=== PATIENT | male | born 1975 | race Caucasian/White ===

== ENCOUNTER 2018-02-27 07:59 | Emergency (ER) | payer OTHER ==
[2018-02-27 08:23] VITALS: BP 151/88
--- NOTE | 2018-02-27 09:03 | UC ---
General HPI - HPI Summary HPI Summary: 4-5 day hx of being ill. began with sinus congestion then a sore throat. now has cough, congestion and some castañeda. hx asthma. no fever or chills but fatigued. - History of Current Complaint Chief Complaint: UCRespiratory Stated Complaint: SORE THROAT,RUNNY NOSE Time Seen by Provider: 02/27/18 08:53 Hx Obtained From: Patient Onset/Duration: Gradual Onset Timing: Constant Pain Intensity: 0 Associated Signs & Symptoms: Positive: Cough, SOB. Negative: Chest Pain, Fever , Headache, Weakness - Allergy/Home Medications Allergies/Adverse Reactions: Allergies Allergy/AdvReac Type Severity Reaction Status Date / Time No Known Allergies Allergy Verified 02/27/18 08:23 Home Medications: Home Medications Fluticasone NASAL SPRAY 50MCG* [Flonase NASAL SPRAY 50MCG*] 2 spray BOTH NARES DAILY 02/27/18 [History Confirmed 02/27/18] PMH/Surg Hx/FS Hx/Imm Hx Cardiovascular History: Hypertension - white coat plus borderline, tx diet Respiratory History: Asthma, Pneumonia - Surgical History Surgical History: Yes Surgery Procedure, Year, and Place: inguinal hernia repair - Social History Occupation: Employed Full-time Alcohol Use: Rare Substance Use Type: None Smoking Status (MU): Never Smoked Tobacco - Immunization History Vaccination Up to Date: Yes Review of Systems All Other Systems Reviewed And Are Negative: Yes Constitutional: Positive: Fatigue Skin: Positive: Negative Eyes: Positive: Negative ENT: Positive: Sore Throat, Sinus Congestion Respiratory: Positive: Shortness Of Breath, Cough Cardiovascular: Positive: Negative Gastrointestinal: Positive: Negative Genitourinary: Positive: Negative Motor: Positive: Negative Neurovascular: Positive: Negative Musculoskeletal: Positive: Negative Neurological: Positive: Negative Psychological: Positive: Negative Is Patient Immunocompromised?: No Physical Exam Triage Information Reviewed: Yes Appearance: Ill-Appearing - but non toxic Vital Signs: Initial Vital Signs Temp 98.5 F 02/27/18 08:18 Pulse 88 02/27/18 08:18 Resp 16 02/27/18 08:18 BP 151/88 02/27/18 08:18 Pulse Ox 99 02/27/18 08:18 Vital Signs Reviewed: Yes Eyes: Positive: Conjunctiva Clear ENT: Positive: Pharynx normal, Nasal congestion, TMs normal, Uvula midline - but mild to moderate red and swelling. Negative: Nasal drainage, Trismus, Muffled voice, Hoarse voice Neck: Positive: Supple, Nontender, No Lymphadenopathy Respiratory: Positive: No respiratory distress, Decreased breath sounds, Other: - congested bronchospastic cough Cardiovascular: Positive: RRR, No Murmur Abdomen Description: Positive: Nontender, No Organomegaly, Soft Bowel Sounds: Positive: Present Musculoskeletal: Positive: ROM Intact Neurological: Positive: Alert Psychological: Positive: Age Appropriate Behavior Skin Exam: Normal Course/Dx - Course Course Of Treatment: BP elevated but ill, borederline HTN and white coat HTN, will have it rechecked on f/u. non toxic and not hypoxic. - Differential Dx - Multi-Symptom Provider Diagnoses: URI, Uvulitis, Asthma flare Discharge - Sign-Out/Discharge Documenting (check all that apply): Patient Departure All imaging exams completed and their final reports reviewed: No Studies - Discharge Plan Condition: Stable Disposition: HOME Prescriptions: Albuterol HFA INHALER* [Ventolin HFA Inhaler*] 2 puff INH Q6H #1 mdi Amoxicillin/Clavulanate TAB* [Augmentin TAB 875*] 875 mg PO BID 10 Days #20 tab predniSONE TAB* [Deltasone 20 MG TAB*] 40 mg PO DAILY 5 Days #10 tab Patient Education Materials: Asthma (DC), Upper Respiratory Infection (ED), Uvulitis (ED) Forms: *Work Release Referrals: ANCELMO Blandon [Medical Doctor] - 5 Days - Billing Disposition and Condition Condition: STABLE Disposition: Home - Attestation Statements Provider Attestation: Per institutional requirements, I have reviewed the chart, however, I was not consulted specifically or made aware of this patient by the midlevel provider. I did not personally evaluate, interact with , or disposition this patient.
== END 2018-02-27 09:17 | disposition home or self-care (01) ==
LOC: UCCORT 07:59
DX: J06.9 Acute upper respiratory infection, unspecified (principal); K12.2 Cellulitis and abscess of mouth; J45.909 Unspecified asthma, uncomplicated; I10 Essential (primary) hypertension
CPT/HCPCS: 99202; G0463

== ENCOUNTER 2018-07-11 20:31 | Emergency (ER) | payer OTHER ==
[2018-07-11 21:45] VITALS: BP 140/88
[2018-07-11] MEDS ORDERED: Azithromycin TAB* 250 MG PO ONE (22:13)
--- NOTE | 2018-07-11 22:14 | UC ---
Throat Pain/Nasal Dylan HPI - History of Current Complaint Chief Complaint: UCRespiratory Stated Complaint: COUGH,CHEST CONGESTION Time Seen by Provider: 07/11/18 22:05 Pain Intensity: 0 - Allergies/Home Medications Allergies/Adverse Reactions: Allergies Allergy/AdvReac Type Severity Reaction Status Date / Time No Known Allergies Allergy Verified 07/11/18 21:45 PMH/Surg Hx/FS Hx/Imm Hx - Surgical History Surgical History: Yes Surgery Procedure, Year, and Place: inguinal hernia repair - Social History Alcohol Use: Rare Substance Use Type: None Smoking Status (MU): Never Smoked Tobacco - Immunization History Vaccination Up to Date: Yes Physical Exam Vital Signs: Initial Vital Signs Temp 97.3 F 07/11/18 21:41 Pulse 55 07/11/18 21:41 Resp 16 07/11/18 21:41 BP 140/88 07/11/18 21:41 Pulse Ox 100 07/11/18 21:41 Discharge - Discharge Plan Condition: Good Disposition: HOME Prescriptions: Azithromycin TAB* [Zithromax TAB (Z-AISSATOU) 250 mg #6 tabs] 250 mg PO DAILY #4 tab Patient Education Materials: Sinusitis (ED) Referrals: No Primary Care Phys,NOPCP [Primary Care Provider] - Additional Instructions: - Antibiotics as directed - Increase fluid intake - Increase hygiene - MOtrin/ tylenol as needed for pain - Billing Disposition and Condition Condition: GOOD Disposition: Home
== END 2018-07-11 22:20 | disposition home or self-care (01) ==
LOC: UCCORT 20:31
DX: R05 Cough (principal); R09.89 Other specified symptoms and signs involving the circulatory and respiratory systems
CPT/HCPCS: 99212; A9270-GY; G0463

== ENCOUNTER 2019-03-25 07:02 | Emergency (ER) | payer BC, OTHER ==
[2019-03-25 07:14] VITALS: BP 136/89
--- NOTE | 2019-03-25 07:14 | UC ---
Throat Pain/Nasal Dylan HPI - HPI Summary HPI Summary: Patient presented to urgent care with his . Patient's a 44-year-old gentleman with a history of asthma. Patient was hospitalized at age 4 and again at age 13. Patient states he gets bronchitis and then pneumonia frequently. Patient states her last 4-5 days he's had head congestion and some chest. Patient states he is coughing yellow to brown sputum. Patient denies fevers but states he has fatigue. Patient reports sinus congestion and mild postnasal drip. Patient states his throat little bit sore. Patient has an albuterol MDI and he has used it a few times but not consistently this week. Patient last time was on prednisone approximately 6 months ago. Patient denies shortness of breath or chest pain but states when he coughs sometimes it takes a minute to get his breath back. Patient denies sick contacts. Patient's medications are centered in the EMR reviewed this visit. - History of Current Complaint Chief Complaint: UCGeneralIllness Stated Complaint: upper resp Severity: Mild Pain Intensity: 0 - Allergies/Home Medications Allergies/Adverse Reactions: Allergies Allergy/AdvReac Type Severity Reaction Status Date / Time No Known Allergies Allergy Verified 03/25/19 07:10 PMH/Surg Hx/FS Hx/Imm Hx Previously Healthy: Yes Respiratory History: Asthma - Surgical History Surgical History: Yes Surgery Procedure, Year, and Place: inguinal hernia repair - Family History Known Family History: Positive: Non-Contributory - Social History Occupation: Employed Full-time Lives: With Family Alcohol Use: Occasionally Substance Use Type: None Smoking Status (MU): Never Smoked Tobacco - Immunization History Vaccination Up to Date: Yes Review of Systems All Other Systems Reviewed And Are Negative: Yes Constitutional: Positive: Fatigue ENT: Positive: Sore Throat, Nasal Discharge, Sinus Congestion, Sinus Pain/ Tenderness Respiratory: Positive: Cough. Negative: Shortness Of Breath Cardiovascular: Positive: Negative Physical Exam - Summary Physical Exam Summary: Vital Signs Reviewed: Yes A+Ox3, no distress Eyes: Conjunctiva Clear, ASCENCION. EOM intact and full ENT: Hearing grossly normal TM x 2 clear, turbinates inflammed and boggy, + PND , mmoist, uvula midline, no exudate, + erythema oropharynx Neck: Positive: Supple Respiratory: Positive: No respiratory distress, No accessory muscle use + few scattered end expiratory wheeze. Cardiovascular: RRR nl s1, s2 no m/r CBT <2 sec abd soft + BS nt/nd no guarding, no distension Musculoskeletal Exam: DASH x 4 without difficulty Strength Intact, ROM Intact Neurological: Positive: Alert, + sensation throughout Psychological: Positive: Normal Response To examiner Skin: Positive: no rash, no ecchymosis Triage Information Reviewed: Yes Vital Signs: Initial Vital Signs Temp 97.6 F 03/25/19 07:10 Pulse 79 03/25/19 07:10 Resp 18 03/25/19 07:10 BP 136/89 03/25/19 07:10 Pulse Ox 100 03/25/19 07:10 Throat Pain/Nasal Course/Dx - Course Course Of Treatment: Patient presents to urgent care with his . Patient states last 4-5 days he' s had progressive congestion and fullness chest. Patient reports coarse cough with yellow to brownish sputum. Patient states he's had some wheezing and uses an inhaler intermittently. Patient with a history of recurrent pneumonias related to his bronchitis and asthma. Patient's vital signs are stable. On exam patient well-appearing. Patient does have erythema of his throat and an expiratory wheeze diffusely. No rhonchi. Rapid strep was negative. Discussed with patient and his these are usually viral. Recommend prednisone and albuterol initially. If symptoms progress. A prescription for antibiotics he can start in 24-48 hours. Patient is comfortable with plan. Secretion precautions discussed. Return precautions discussed. - Differential Dx/Diagnosis Provider Diagnosis: Acute bronchitis, Pharyngitis Discharge ED - Sign-Out/Discharge Documenting (check all that apply): Patient Departure All imaging exams completed and their final reports reviewed: No Studies - Discharge Plan Condition: Stable Disposition: HOME Prescriptions: Albuterol HFA INHALER* [Ventolin HFA Inhaler*] 2 puff INH Q4H PRN #1 mdi PRN Reason: wheeze Amoxicillin/Clavulanate TAB* [Augmentin TAB 875*] 875 mg PO BID #20 tab predniSONE TAB* [Deltasone TAB*] 50 mg PO DAILY #5 tab Patient Education Materials: Pharyngitis (ED), Acute Bronchitis (ED) Referrals: No Primary Care Phys,NOPCP [Primary Care Provider] - [facility] [place] [facility] [Outside] Additional Instructions: -Take prednisone daily as prescribed -Use your albuterol puffer - 2 puffs every 4 hours for the next 2 days - then as needed -Stay well hydrated - avoid excess caffeine and all alcohol - eat regular, healthy meals - - humidify the air in the room where you sleep - boil water, run a hot steam shower, vaporizer, cups of water by heat register - okay to take over the counter decongestant and cough medication - If your symptoms progress over the next 24-36 hours, (you develop fevers, cough increases) okay to start antibiotics as prescribed -- These infections are spread by secretions - do NOT share eating or drinking utensils - clean items you share with other people such as cell phones, computer mouse, TV remote, computer tablets,etc.. Once you start to feel better , change your toothbrush and your pillowcase. -Contact your doctor to arrange a follow-up appointment this week. Call your doctor, return here or go to the emergency department with any questions or concerns - Billing Disposition and Condition Condition: STABLE Disposition: Home
== END 2019-03-25 07:41 | disposition home or self-care (01) ==
LOC: UCCORT 07:02
DX: J20.9 Acute bronchitis, unspecified (principal); J02.9 Acute pharyngitis, unspecified; J45.909 Unspecified asthma, uncomplicated
CPT/HCPCS: 87651; 99212; G0463